=== PATIENT | female | born 1960 | race Caucasian/White ===

== ENCOUNTER 2017-03-29 11:06 | Observation (INO) | payer OTHER ==
[~2017-03-29] VITALS: Ht 154.9 cm; Wt 81.0 kg
[~2017-03-29 11:06] MED LIST: CLON-352 PO; HYDR-2768 PO; MOBI15TA PO; ONDA4 PO
[2017-03-29 11:07] VITALS: BP 170/101; PULSE 104; RESP 20; TEMP 99.2; O2SAT 97
[2017-03-29] MEDS ORDERED: SODIUM CHLORIDE 0.9% FLUSH 10 ML FLUSH IVF PRN (11:30)
--- NOTE | 2017-03-29 11:31 | PD ---
HPI Chief Complaint: chest pain Time Seen by Provider: 11:28 Travel History International Travel<30 days: No Contact w/Intl Traveler<30days: No Traveled to known affect area: No History of Present Illness HPI 56-year-old female patient with history of hypertension, states that she woke up this morning with 8 out of 10 chest pains. She states that she also is having neck pain and radiates down her chest and arm areas. She states that the chest pain gets worse when she coughs, when she takes a deep breath, when she moves. She denies any fevers, denies any other issues. She denies any previous symptoms in the past. Modifying Factors: None Associated Signs & Symptoms: Chest pains Risk Factors: None PFSH Past Medical History Heart Rhythm Problems: No Cardiac Catheterization: No Cardiovascular Problems: Yes (HTN) High Cholesterol: Yes Chest Pain: Yes Congestive Heart Failure: No Diabetes: No Diminished Hearing: No GERD: Yes Hypertension: Yes Tubal Ligation: Yes Past Surgical History Section: Yes (x 2) Coronary Artery Bypass Graft: No Social History Alcohol Use: No Tobacco Use: No Substance Use: No Allergies-Medications (Allergen,Severity, Reaction): Coded Allergies: No Known Allergies (Verified , 02/07/14) Reported Meds & Prescriptions Reported Meds & Active Scripts Active Reported Hydrochlorothiazide 25 Mg Tab 25 Mg PO DAILY Benicar (Olmesartan) 5 Mg Tab 5 Mg PO DAILY Review of Systems Except as stated in HPI: all other systems reviewed are Neg Physical Exam Narrative GENERAL: Well-developed middle age female patient currently in mild distress. Awake and oriented 3. SKIN: Focused skin assessment warm/dry. HEAD: Atraumatic. Normocephalic. EYES: Pupils equal and round. No scleral icterus. No injection or drainage. ENT: No nasal bleeding or discharge. Mucous membranes pink and moist. NECK: Trachea midline. No JVD. CARDIOVASCULAR: Regular rate and rhythm. No murmur appreciated. RESPIRATORY: No accessory muscle use. Clear to auscultation. Breath sounds equal bilaterally. GASTROINTESTINAL: Abdomen soft, non-tender, nondistended. Hepatic and splenic margins not palpable. MUSCULOSKELETAL: No obvious deformities. No clubbing. No cyanosis. No edema. NEUROLOGICAL: Awake and alert. No obvious cranial nerve deficits. Motor grossly within normal limits. Normal speech. PSYCHIATRIC: Appropriate mood and affect; insight and judgment normal. Data Data Last Documented VS Vital Signs Date Time Temp Pulse Resp B/P (MAP) Pulse Ox O2 Delivery O2 Flow Rate FiO2 03/29/17 11:35 91 14 149/84 (105) 98 Nasal Cannula 2.00 03/29/17 11:07 99.2 Orders Orders Electrocardiogram (03/29/17 11:28) Ckmb (Isoenzyme) Profile (03/29/17 11:28) Complete Blood Count With Diff (03/29/17 11:28) Comprehensive Metabolic Panel (03/29/17 11:28) D-Dimer (03/29/17 11:28) Magnesium (Mg) (03/29/17 11:28) Prothrombin Time / Inr (Pt) (03/29/17 11:28) Act Partial Throm Time (Ptt) (03/29/17 11:28) Troponin I (03/29/17 11:28) Lipase (03/29/17 11:28) Chest, Single Ap (03/29/17 11:28) Ecg Monitoring (03/29/17 11:28) Bilateral Bp Monitoring (03/29/17 11:28) Iv Access Insert/Monitor (03/29/17 11:28) Oximetry (03/29/17 11:28) Oxygen Administration (03/29/17 11:28) Sodium Chloride 0.9% Flush (Ns Flush) (03/29/17 11:30) CKMB (03/29/17 11:40) CKMB% (03/29/17 11:40) Admit Order (Ed Use Only) (03/29/17 12:52) Labs Laboratory Tests Test 03/29/17 11:40 White Blood Count 18.4 TH/MM3 Red Blood Count 4.97 MIL/MM3 Hemoglobin 15.3 GM/DL Hematocrit 44.5 % Mean Corpuscular Volume 89.5 FL Mean Corpuscular Hemoglobin 30.9 PG Mean Corpuscular Hemoglobin Concent 34.5 % Red Cell Distribution Width 12.9 % Platelet Count 223 TH/MM3 Mean Platelet Volume 10.2 FL Neutrophils (%) (Auto) 80.6 % Lymphocytes (%) (Auto) 12.8 % Monocytes (%) (Auto) 5.9 % Eosinophils (%) (Auto) 0.2 % Basophils (%) (Auto) 0.5 % Neutrophils # (Auto) 14.8 TH/MM3 Lymphocytes # (Auto) 2.3 TH/MM3 Monocytes # (Auto) 1.1 TH/MM3 Eosinophils # (Auto) 0.0 TH/MM3 Basophils # (Auto) 0.1 TH/MM3 CBC Comment AUTO DIFF Prothrombin Time 11.3 SEC Prothromb Time International Ratio 1.0 RATIO Activated Partial Thromboplast Time 21.3 SEC D-Dimer Quantitative (PE/DVT) 0.41 MG/L FEU Blood Urea Nitrogen 19 MG/DL Creatinine 0.78 MG/DL Random Glucose 94 MG/DL Total Protein 8.2 GM/DL Albumin 3.8 GM/DL Calcium Level 9.1 MG/DL Magnesium Level 1.8 MG/DL Alkaline Phosphatase 83 U/L Aspartate Amino Transf (AST/SGOT) 36 U/L Alanine Aminotransferase (ALT/SGPT) 50 U/L Total Bilirubin 0.6 MG/DL Sodium Level 138 MEQ/L Potassium Level 4.3 MEQ/L Chloride Level 102 MEQ/L Carbon Dioxide Level 24.4 MEQ/L Anion Gap 12 MEQ/L Estimat Glomerular Filtration Rate 77 ML/MIN Total Creatine Kinase 194 U/L Creatine Kinase MB 2.3 NG/ML Creatine Kinase MB % 1.2 % Troponin I LESS THAN 0.02 NG/ML Lipase 170 U/L MDM Medical Decision Making Medical Screen Exam Complete: Yes Emergency Medical Condition: Yes Medical Record Reviewed: Yes Interpretation(s) EKG shows NSR, no ST elevation or depression, and no arrhythmias. No significant T-wave inversions. Laboratory Tests Test 03/29/17 11:40 White Blood Count 18.4 TH/MM3 (4.0-11.0) Neutrophils (%) (Auto) 80.6 % (16.0-70.0) Neutrophils # (Auto) 14.8 TH/MM3 (1.8-7.7) Monocytes # (Auto) 1.1 TH/MM3 (0-0.9) Activated Partial Thromboplast Time 21.3 SEC (24.3-30.1) Blood Urea Nitrogen 19 MG/DL (7-18) Estimat Glomerular Filtration Rate 77 ML/MIN (>89) Total Creatine Kinase 194 U/L (26-192) Troponin I LESS THAN 0.02 NG/ML Last 24 hours Impressions Chest X-Ray 03/29/17 1128 Signed Impressions: Service Date/Time: Wednesday, March 29, 2017 11:54 - CONCLUSION: Normal examination. Eric Camarillo MD Differential Diagnosis Chest pains: Muscular skeletal versus pneumonia versus ACS versus PE Narrative Course Chest x-ray does not show any signs of acute pulmonary processes. EKG did not show dysrhythmias. Cardiac enzymes and negative. At this point, my plan would be to admit the patient for further evaluation a chest pains. Diagnosis Primary Impression: Chest pain Admitting Information Admitting Physician Requests: Admit Alexei Wong MD Mar 29, 2017 11:31
[2017-03-29] MEDS ORDERED: HYDR25TA5 PO (11:34)
[2017-03-29] MEDS ORDERED: BENI5TAB4 PO (11:34)
[2017-03-29 11:35] VITALS: BP_SYST 149; BP_SYST 170; BP_DIAS 101; BP_DIAS 84; PULSE 91; RESP 14; O2SAT 96; O2SAT 98
[2017-03-29 12:02] LABS: AUTOMATED NEUTROPHIL # 14.8 TH/MM3 (1.8-7.7); BASOPHIL # 0.1 TH/MM3 (0-0.2); BASOPHIL % 0.5 % (0.0-2.0); EOSINOPHIL % 0.2 % (0.0-4.0); HEMATOCRIT 44.5 % (35.0-46.0); LYMPH % 12.8 % (9.0-44.0); LYMPHOCYTE # 2.3 TH/MM3 (1.0-4.8); MEAN CELL VOLUME 89.5 FL (80.0-100.0); MEAN CORPUSCULAR HEMOGLOBIN 30.9 PG (27.0-34.0); MEAN CORPUSCULAR HGB CONC 34.5 % (32.0-36.0); MONO % 5.9 % (0.0-8.0); NEUT % 80.6 % (16.0-70.0); PLATELET COUNT 223 TH/MM3 (150-450); RED BLOOD COUNT 4.97 MIL/MM3 (4.00-5.30); RED CELL DISTRIBUTION WIDTH 12.9 % (11.6-17.2); WHITE BLOOD COUNT 18.4 TH/MM3 (4.0-11.0)
[2017-03-29 12:17] LABS: HEMO FLAGS AUTO DIFF
--- NOTE | 2017-03-29 12:20 | RADRPT ---
EXAM DATE/TIME: 03/29/2017 11:54 [facility] COMPARISON: CHEST SINGLE AP, February 07, 2014, 10:07. INDICATIONS : Chest pain today. MEDICAL HISTORY : Hypertension. SURGICAL HISTORY : None. ENCOUNTER: Initial ACUITY: 1 day PAIN SCORE: 8/10 LOCATION: Bilateral chest FINDINGS: A single view of the chest demonstrates the lungs to be symmetrically aerated without evidence of mas s, infiltrate or effusion. The cardiomediastinal contours are unremarkable. Osseous structures are intact. Stable calcified granuloma left lung base CONCLUSION: Normal examination. Eric Camarillo MD on March 29, 2017 at 12:18 Board Certified Radiologist. This report was verified electronically.
[2017-03-29 12:24] LABS: ANION GAP 12 MEQ/L (5-15); AST (GOT) 36 U/L (15-37); BICARBONATE 24.4 MEQ/L (21.0-32.0); BLOOD UREA NITROGEN 19 MG/DL (7-18); CHLORIDE 102 MEQ/L (98-107); GLOMERULAR FILTRATION RATE 77 ML/MIN (>89); MAGNESIUM 1.8 MG/DL (1.5-2.5); SODIUM (NA) 138 MEQ/L (136-145)
[2017-03-29 12:25] LABS: POTASSIUM 4.3 MEQ/L (3.5-5.1)
[2017-03-29 12:29] LABS: APTT (PATIENT) 21.3 SEC (24.3-30.1); PROTHROMBIN TIME - PATIENT 11.3 SEC (9.8-11.6)
[2017-03-29 12:33] LABS: ALKALINE PHOSPHATASE 83 U/L (45-117); ALT (GPT) 50 U/L (10-53); CREATINE KINASE 194 U/L (26-192); TOTAL BILIRUBIN ADULT 0.6 MG/DL (0.2-1.0)
[2017-03-29 12:45] LABS: CKMB 2.3 NG/ML (0.5-3.6)
[2017-03-29 13:00] VITALS: BP 149/78; PULSE 82; RESP 16; O2SAT 99
[2017-03-29 13:31] LABS: PLATELET ESTIMATE SMEAR NORMAL (NORMAL); PLATELET MORPHOLOGY NORMAL (NORMAL); SCAN/DIFF AUTO DIFF CONFIRMED
[2017-03-29 13:45] VITALS: O2SAT 98
--- NOTE | 2017-03-29 13:50 | HHI.HP ---
HPI Primary Care Physician Unknown Chief Complaint Chest pain History of Present Illness This is a patient is a 56-year-old female with history of hypertension and hyperlipidemia that presents to ED via private vehicle with a complaint of chest discomfort. States it began about 6:00 this morning soon after awakening. Scribes as a tightness and points to the center of her chest. States it is worsened if she coughs, takes a deep breath, certain movements, or if she presses on the chest area. She states the discomfort is worsened with coughing but states she really has not had a cough. States that she was told by grinder brake lining that she thinks she is having a heart attack that she should start coughing. Denies history of CAD. Upon review records she had a Ahsan protocol ETT in 2010 that was nonischemic. Not currently followed by grinder brake lining. Denies recent illness. Denies fevers or chills. Denies recent travel. Review of Systems General: Patient denies fevers, chills recent, and recent travel HEENT: Patient denies headache, sore throat, difficulty swallowing. Cardiovascular: Has the chest discomfort as mentioned above. Denies sensation of heart beating rapidly or irregularly. No syncope. Denies diaphoresis. Respiratory: Denies shortness of breath or inspirational chest discomfort. Denies coughing wheezing or hemoptysis. GI: [place] nauseous. Patient denies vomiting, diarrhea, abdominal pain, bloody stools. Musculoskeletal: Patient denies joint pain or edema. Denies calf pain or edema. Neurovascular: Patient denies numbness, tingling, weakness in extremities. Denies headache. Endocrine: Denies polyuria and polydipsia. Hematologic: Denies easy bruising. Skin: Denies rash or itching. Past Family Social History Allergies: Coded Allergies: No Known Allergies (Verified , 02/07/14) Past Medical History Hypertension and hyperlipidemia. Denies diabetes and CAD. Lifetime nonsmoker. Past Surgical History 2. Reported Medications Reported Meds & Active Scripts Active Reported Hydrochlorothiazide 25 Mg Tab 25 Mg PO DAILY Benicar (Olmesartan) 5 Mg Tab 5 Mg PO DAILY Active Ordered Medications Current Medications Medications (Trade) Dose Ordered Sig/[place] Start Time Stop Time Status Last Admin (NS Flush) 2 ml UNSCH PRN IVF 03/29/17 11:30 Family History Denies family history of CAD. Social History Lifetime nonsmoker. Denies alcohol or illicit drugs. Physical Exam Vital Signs Vital Signs Date Time Temp Pulse Resp B/P (MAP) Pulse Ox O2 Delivery O2 Flow Rate FiO2 03/29/17 11:35 91 14 149/84 (105) 98 Nasal Cannula 2.00 03/29/17 11:35 96 Room Air 03/29/17 11:35 Nasal Cannula 2.00 03/29/17 11:35 170/101 (124) 149/84 (105) 03/29/17 11:35 Nasal Cannula 2.00 03/29/17 11:07 99.2 104 20 170/101 (124) 97 Room Air Physical Exam GENERAL: This is a well-nourished, well-developed patient, in no apparent distress. Patient speaks in clear complete sentences. Patient is pleasant. HEENT: Head is atraumatic and normocephalic. Neck is supple without lymphadenopathy and trachea is midline. No JVD or carotid bruits. CARDIOVASCULAR: Regular rate and rhythm without murmurs, gallops, or rubs. RESPIRATORY: Clear to auscultation. Breath sounds equal bilaterally. No wheezes , rales, or rhonchi. Chest wall is tender worsening the discomfort that she has had since 6:00 this morning. No use of accessory muscles. GASTROINTESTINAL: Abdomen is nontender, nondistended. Abdomen soft. No obvious pulsatile mass or bruit. No CVA tenderness. Strong femoral pulses bilaterally. Normal bowel sounds in all quadrants. MUSCULOSKELETAL: Patient is moving upper and lower extremities freely. No calf tenderness or edema, no Homans sign. Strong pulses in upper and lower extremities. NEUROLOGICAL: Patient is alert and oriented. Cranial nerves 2-12 are grossly intact. No focal deficits and speech is clear. SKIN: No rash and turgor is normal. Laboratory Laboratory Tests Test 03/29/17 11:40 White Blood Count 18.4 Red Blood Count 4.97 Hemoglobin 15.3 Hematocrit 44.5 Mean Corpuscular Volume 89.5 Mean Corpuscular Hemoglobin 30.9 Mean Corpuscular Hemoglobin Concent 34.5 Red Cell Distribution Width 12.9 Platelet Count 223 Mean Platelet Volume 10.2 Neutrophils (%) (Auto) 80.6 Lymphocytes (%) (Auto) 12.8 Monocytes (%) (Auto) 5.9 Eosinophils (%) (Auto) 0.2 Basophils (%) (Auto) 0.5 Neutrophils # (Auto) 14.8 Lymphocytes # (Auto) 2.3 Monocytes # (Auto) 1.1 Eosinophils # (Auto) 0.0 Basophils # (Auto) 0.1 CBC Comment AUTO DIFF Differential Comment AUTO DIFF CONFIRMED Platelet Estimate NORMAL Platelet Morphology Comment NORMAL Prothrombin Time 11.3 Prothromb Time International Ratio 1.0 Activated Partial Thromboplast Time 21.3 D-Dimer Quantitative (PE/DVT) 0.41 Blood Urea Nitrogen 19 Creatinine 0.78 Random Glucose 94 Total Protein 8.2 Albumin 3.8 Calcium Level 9.1 Magnesium Level 1.8 Alkaline Phosphatase 83 Aspartate Amino Transf (AST/SGOT) 36 Alanine Aminotransferase (ALT/SGPT) 50 Total Bilirubin 0.6 Sodium Level 138 Potassium Level 4.3 Chloride Level 102 Carbon Dioxide Level 24.4 Anion Gap 12 Estimat Glomerular Filtration Rate 77 Total Creatine Kinase 194 Creatine Kinase MB 2.3 Creatine Kinase MB % 1.2 Troponin I LESS THAN 0.02 Lipase 170 Result Diagram: 03/29/17 1140 03/29/17 1140 Imaging Last 48 hours Impressions Chest X-Ray 03/29/17 1128 Signed Impressions: Service Date/Time: Wednesday, March 29, 2017 11:54 - CONCLUSION: Normal examination. Eric Camarillo MD Course Initial EKG has sinus rhythm rate of [address] segment depressions or elevations. Caprini VTE Risk Assessment Caprini VTE Risk Assessment: No/Low Risk (score <= 1) Caprini Risk Assessment Model Point Value = 1 Point Value = 2 Point Value = 3 Point Value = 5 Age 41-60 Minor surgery BMI > 25 kg/m2 Swollen legs Varicose veins or History of unexplained or recurrent spontaneous Oral contraceptives or hormone replacement Sepsis (< 1 month) Serious lung disease, including pneumonia (< 1 month) Abnormal pulmonary function Acute myocardial infarction Congestive heart failure (< 1 month) History of inflammatory bowel disease Medical patient at bed rest Age 61-74 Arthroscopic surgery Major open surgery (> 45 min) Laparoscopic surgery (> 45 min) Malignancy Confined to bed (> 72 hours) Immobilizing plaster cast Central venous access Age >= 75 History of VTE Family history of VTE Factor V Leiden Prothrombin [id number] Lupus anticoagulant Anticardiolipin antibodies Elevated serum homocysteine Heparin-induced thrombocytopenia Other congenital or acquired thrombophilia Stroke (< 1 month) Elective arthroplasty Hip, pelvis, or leg fracture Acute spinal cord injury (< 1 month) Prophylaxis Regimen Total Risk Factor Score Risk Level Prophylaxis Regimen 0-1 Low Early ambulation 2 Moderate Order ONE of the following: *Sequential Compression Device (SCD) *Heparin 5000 units SQ BID 3-4 Higher Order ONE of the following medications: *Heparin 5000 units SQ TID *Enoxaparin/Lovenox 40 mg SQ daily (WT < 150 kg, CrCl > 30 mL/min) *Enoxaparin/Lovenox 30 mg SQ daily (WT < 150 kg, CrCl > 10-29 mL/min) *Enoxaparin/Lovenox 30 mg SQ BID (WT < 150 kg, CrCl > 30 mL/min) AND/OR *Sequential Compression Device (SCD) 5 or more Highest Order ONE of the following medications: *Heparin 5000 units SQ TID (Preferred with Epidurals) *Enoxaparin/Lovenox 40 mg SQ daily (WT < 150 kg, CrCl > 30 mL/min) *Enoxaparin/Lovenox 30 mg SQ daily (WT < 150 kg, CrCl > 10-29 mL/min) *Enoxaparin/Lovenox 30 mg SQ BID (WT < 150 kg, CrCl > 30 mL/min) AND *Sequential Compression Device (SCD) Assessment and Plan Assessment and Plan * Chest pain: Currently patient's discomfort appears musculoskeletal in nature. Chest wall was rather tender with even lightly palpating the area as well as which took a deep breath, coughs, or with twisting of the torso. Patient will be seen by Dr. Marv Baker of cardiology to determine further plan. We will give a dose of IV Toradol at this time. At discharge patient will need to follow-up with PCP. * Hypertension: Continue current medication. Have prn orders. * Hyperlipidemia: Patient states she takes fish oil. Has not been prescribed medication yet. Patient is stable at this time. She is agreeable to this plan. Selvin Franklin Mar 29, 2017 13:50
[2017-03-29] MEDS ORDERED: ACETAMINOPHEN 500 MG CPLT PO PRN (14:00)
[2017-03-29] MEDS ORDERED: PANTOPRAZOLE SOD 40 MG DELAYED RELEASE TAB PO SCH (14:00)
[2017-03-29] MEDS ORDERED: KETOROLAC TROMETHAMINE 30 MG/ML (IVP) VIAL IVP ONE (14:00)
[2017-03-29] MEDS ORDERED: ONDANSETRON HCL 4 MG/2 ML VIAL IV PUSH PRN (14:00)
[2017-03-29] MEDS ORDERED: cloNIDine HCL 0.1 MG TAB PO PRN (14:00)
[2017-03-29] MEDS ORDERED: RESP: ALBUTEROL 2.5 MG/IPRATROPIUM 0.5 MG NEB (PRN) INH (14:00)
[2017-03-29] MEDS ORDERED: SODIUM CHLORIDE 0.9% FLUSH 5 ML FLUSH IVF PRN (14:00)
[2017-03-29] MEDS ORDERED: ACETAMINOPHEN/HYDROcodone 325 MG/7.5 MG TAB PO PRN (14:00)
[2017-03-29] MEDS ORDERED: ALPRAZolam 0.25 MG TAB PO PRN (14:00)
--- NOTE | 2017-03-29 15:44 | EKG ---
Date Performed: 03/29/2017 Time Performed: 11:25:16 PTAGE: 56 years EKG: Sinus rhythm MODERATE INTRAVENTRICULAR CONDUCTION DELAY BORDERLINE ECG INTERPRETATION BASED ON A DEFAULT AGE OF 4 0 YEARS PREVIOUS TRACING : 02/07/2014 09.36 Since previous tracing, no significant change noted DOCTOR: Marv Baker Interpretating Date/Time 03/29/2017 15:42:35
--- NOTE | 2017-03-29 15:47 | HHI.DCPOC ---
Discharge Care Plan Diagnosis: (1) Chest pain, atypical (2) Hypertension Goals to Promote Your Health * To prevent worsening of your condition and complications * To maintain your health at the optimal level Directions to Meet Your Goals Take your medications as prescribed Follow your dietary instruction Follow activity as directed Keep your appointments as scheduled Take your immunizations and boosters as scheduled If your symptoms worsen call your PCP, if no PCP go to Urgent Care Center or Emergency Room Smoking is Dangerous to Your Health. Avoid second hand smoke Call the 24-hour hour crisis hotline for domestic abuse at Selvin Franklin Mar 29, 2017 15:47
[2017-03-29] MEDS ORDERED: SODIUM CHLORIDE 0.9% FLUSH 5 ML FLUSH IVF SCH (21:00)
--- NOTE | 2017-03-30 08:37 | EKG ---
Date Performed: 03/29/2017 Time Performed: 14:59:18 PTAGE: 56 years EKG: Sinus rhythm INFERIOR MYOCARDIAL INFARCTION ABNORMAL ECG NO SIG CHANGES PREVIOUS TRACING : 03/29/2017 11.25 DOCTOR: Min Mcmahon Interpretating Date/Time 03/30/2017 08:36:02
[2017-03-30] MEDS ORDERED: ASPIRIN 325 MG TAB PO SCH (09:00)
== END 2017-03-29 16:24 | disposition home or self-care (01) ==
LOC: NEPC 11:06 → NEDA 12:54 → NEPFCDU 14:47
PROVIDERS: ADMIT Internal Medicine Cardiovascular Disease; ATTEND Internal Medicine Cardiovascular Disease
DX: R07.89 Other chest pain (principal); R94.31 Abnormal electrocardiogram [ECG] [EKG]; I10 Essential (primary) hypertension; E78.5 Hyperlipidemia, unspecified; Z79.899 Other long term (current) drug therapy
CPT/HCPCS: 71010; 80053; 82550; 82552; 83690; 83735; 84484; 85025; 85379; 85610; 85730; 93005; 96374; 99285; G0378; J1885